=== PATIENT | male | born 1965 | race African-American/Black ===

== ENCOUNTER → 2018-09-25 | Outpatient (CLI) | payer OTHER ==
--- NOTE | 2018-09-25 13:19 | KCIC ---
EXAM: Right trochanteric/lateral hip injection WITH Ultrasound guidance DATE: 09/25/2018 CLINICAL HISTORY: Right lateral hip pain COMPARISON: None pertinent TECHNIQUE: The patient was informed of the indications and alternatives for this procedure as well as risks and benefits. No immediate contraindication identified. The patient provided informed, written consent. Laterality was confirmed by the entire team following a time out. FINDINGS: Diagnostic imaging of the right anterior and lateral hip was performed. The gluteus minimus tendinous attachment tip was hypoechoic with regions of heterogeneous echotexture near the trochanteric attachment. This is consistent with tendinosis. The gluteus medius tendinous attachment was also mildly heterogeneous in echotexture suggesting mild tendinosis. The gluteus medius and minimus muscle bellies are in general normal in echotexture and morphology. The overlying gluteus lalo muscle is normal in signal and morphology, normal to the femoral attachment. Anteriorly the tensor of fascia petar, rectus femoris and iliopsoas myotendinous junctions are normal. No hip joint effusion. PROCEDURE: Following initial sonographic left lateral hip/gluteus localization, a suitable area was sterilely prepped and draped. Local anesthesia was administered with 1% xylocaine. With continuous sonographic observation, a 22-gauge spinal needle was advanced to the lesser trochanter at the level of the left gluteus minimus attachment with confirmation of position with infusion of lidocaine. Subsequent infusion Depo-Medrol 20 mg, 1 cc lidocaine 1% and 1 cc bupivacaine 0.25%. Hemostasis with local pressure. Local clinical exam negative for immediate complication. Patient informed regarding local potential signs or symptoms that may indicate need to return to ER/Ordering physician for further evaluation. Patient informed re precautionary measures after injection of anesthetic. Patient expressed understanding. Performing Physicians: Dr. Marianna Garza Blood Loss: 0 cc Postprocedural pain assessment: The patient did report improvement in the patient's pain with sensation of numbness full injection. IMPRESSION: 1. 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 2. Successful left lateral hip demarcus-gluteus minimus tendinous, subgluteus minimus bursal injection with steroid and anesthetic per clinical request. Electronically signed by: Phani Garza MD (09/25/2018 1:16 PM) [place] [id number]
== END | disposition home or self-care (01) ==
LOC: KCIC US 08:15
PROVIDERS: ATTEND Family Medicine Sports Medicine
DX: M25.551 Pain in right hip (principal)
CPT/HCPCS: 20611; 76942